=== PATIENT | female | born 1970 | race Hispanic/Latino ===

== ENCOUNTER 2017-08-15 10:48 | Emergency (ER) | payer MEDICARE ==
--- NOTE | 2017-08-15 12:02 | Emergency Department Report ---
Chief Complaint: Back Pain/Injury Stated Complaint: LOWER BACK PAIN Time Seen by Provider: 08/15/17 12:00 - HPI History of Present Illness: Patient here report that she is having pain to her right back and right flank area since last night. She says she is having nausea without any vomiting. Patient with blood pressure of 205/122 which was retaken and and was a 208/125. She denies any headache or chest pain, shortness of breath. Patient says she usually takes amlodipine, HCTZ and clonidine and she took this morning but she was not able to keep it down. Pain is 8 out of 10 to her back and flank and aching. Patient says she has a history of kidney stones. She denies any urinary burning but reports frequency. She has a history of hypertension and diabetes and also history of multiple sclerosis. Patient has a history of gallbladder removed, hysterectomy, tubal ligation and uterine ablation. She denies any abdominal pain. - ROS Review of Systems: All systems are negative unless stated in HPI above - Exam Vital Signs: Vital Signs 08/15/17 11:10 Temperature 98 F Pulse Rate 97 H Respiratory 20 Rate Blood Pressure 205/122 O2 Sat by Pulse 97 Oximetry Blood pressure rechecked 208/125. Patient given clonidine 0.2 mg and will recheck blood pressure Physical Exam: Gen.: This is a 46-year-old female well-nourished well-developed. She is nontoxic in appearance but facial grimace from pain CV: S1, S2. Regular rate rhythm Mini-neurological: GCS at 15, speech is clear and fluid. Alert and oriented 3 and no facial droop and Abdomen: Nontender to palpation in all quadrants, normal bowel sounds. No acute abdomen. Positive right CVA tenderness MSE screening note: Focused history and physical exam performed. Due to findings the following was ordered: Patient given clonidine 0.2 mg, Toradol 30 mg and Zofran 4 mg ODT in triage area. Plan to recheck blood pressure ED Medical Decision Making - Medical Decision Making MDM: Patient screened by provider in triage area. Appropriate protocol initiated and patient to be seen in main ED by ED Disposition for MSE Condition: Stable
[2017-08-15] MEDS ORDERED: TORADOL ONE (12:04)
[2017-08-15] MEDS ORDERED: CATAPRES ONE (12:04)
[2017-08-15] MEDS ORDERED: ZOFRAN ODT ONE (12:04)
[2017-08-15] MEDS ORDERED: TORADOL IM ONE (12:23)
[2017-08-15] MEDS ORDERED: ZOFRAN ODT PO ONE (12:23)
[2017-08-15] MEDS ORDERED: CATAPRES PO ONE (12:23)
[2017-08-15 12:54] LABS: Basophils % (Auto) 0.9 % (0.0-1.8); Eosinophils % (Auto) 1.7 % (0.0-4.3); Hematocrit 43.3 % (30.3-42.9); Hemoglobin 14.5 gm/dl (10.1-14.3); Mean Corpuscular HGB Conc 33 % (30-34); Mean Corpuscular Hemoglobin 29 pg (28-32); Mean Corpuscular Volume 86 fl (79-97); Platelet Count 154 K/mm3 (140-440); Red Blood Count 5.01 M/mm3 (3.65-5.03); Red Cell Distribution Width 13.5 % (13.2-15.2)
[2017-08-15 13:11] LABS: Alanine Aminotransferase 20 units/L (7-56); Albumin/Globulin Ratio 1.4 %; Alkaline Phosphatase 87 units/L (35-129); Anion Gap 21 mmol/L; BUN/Creatinine Ratio 16; Blood Urea Nitrogen 13 mg/dL (7-17); Calcium 8.8 mg/dL (8.4-10.2); Carbon Dioxide 26 mmol/L (22-30); Chloride 91.9 mmol/L (98-107); Potassium 3.7 mmol/L (3.6-5.0); Sodium 135 mmol/L (137-145); Total Protein 6.9 g/dL (6.3-8.2)
[2017-08-15 13:17] LABS: Glucose 603 mg/dL (65-100)
--- NOTE | 2017-08-15 13:17 | Cat Scan Report ---
CT ABDOMEN AND PELVIS WITHOUT CONTRAST: 08/15/17 10:48:00 CLINICAL:Flank pain with CVA tenderness. TECHNIQUE: Volumetric acquisition and 1.25 millimeter scan reconstructions from the lung bases through the pelvis. The study was performed without oral contrast. FINDINGS: Abdomen:A 2 mm nonobstructive calculus in the midportion of the right kidney and a 1 mm nonobstructive calculus in the upper pole the left kidney. The renal collecting systems and ureters are nondilated. No renal mass or cyst. The adrenal glands are normal. Normal liver and bile ducts status post cholecystectomy. Normal stomach, duodenum, pancreas and spleen. Normal small bowel. Normal ascending, transverse and descending colon. The appendix is normal. No ascites and no pneumoperitoneum. Pelvis: Absence of the uterus and normal vaginal cuff. Normal urinary bladder and rectum.Ovaries are not identified. No adnexal mass or free fluid. Normal sigmoid colon. IMPRESSION: 1. Tiny bilateral nonobstructive renal calculi. 2. No signs of pyelonephritis or pyonephrosis. 3. No obstructive calculus. 4. Status post cholecystectomy and status post hysterectomy with bilateral salpingo-oophorectomy.
[2017-08-15 13:57] LABS: Bacteria,Urine 1+ /HPF (Negative); Bilirubin,Urine NEG (Negative); Blood,Urine LG (Negative); Ketones,Urine NEG (Negative); Leukocyte Esterase,Urine MOD (Negative); Mucus,Urine FEW /HPF; Nitrite,Urine NEG (Negative); Urobilinogen,Urine < 2.0 mg/dL (<2.0)
[2017-08-15] MEDS ORDERED: NACL 0.9% 1000 ML 1,000 ML IV ONE ×2 (16:38→18:19)
[2017-08-15] MEDS ORDERED: ROCEPHIN/NS 1 GM/50 ML 1 GM/50 ML BAG IV ONE (16:39)
[2017-08-15] MEDS ORDERED: ZOFRAN IV ONE ×2 (16:44→18:56)
[2017-08-15] MEDS ORDERED: DILAUDID IV ONE ×2 (16:44→18:19)
[2017-08-15] MEDS ORDERED: cefTRIAXone 1 GM in NACL 0.9% 20 ML IV ONE (17:30)
--- NOTE | 2017-08-15 18:27 | Emergency Department Report ---
ED Abdominal Pain HPI - General Chief Complaint: Back Pain/Injury Stated Complaint: LOWER BACK PAIN Time Seen by Provider: 08/15/17 12:00 Source: patient Mode of arrival: Ambulatory Limitations: No Limitations - History of Present Illness Initial Comments: 46 year old female with a past medical history diabetes, hypertension, multiple sclerosis, kidney stone and previous cholecystectomy, hysterectom, and tubal ligation because also complains of right flank pain since yesterday. Pain acutely worsened at 2 AM. Pain is constant, stabbing, and fluctuates in intensity. Currently radiated 8/10 in intensity and worse with palpation and movement positive associated nausea, vomiting, or by mouth intolerance. Mild dysuria and mild hematuria reported. Symptoms are similar to previous kidney stones in the past. Kidney stones never required lithotripsy or surgical intervention. Patient denies fever. Patient unable to tolerate her BP medications today and did not take her insulin and presents with elevated blood pressure and hyperglycemia. Severity scale (0 -10): 10 - Related Data Previous Rx's Medication Instructions Recorded Last Taken Type HYDROcodone/APAP 7.5-325 [[place] 1 each PO Q6HR PRN #20 tablet 08/15/17 Unknown Rx 7.5/325] Nitrofurantoin Monohyd/M-Cryst 100 mg PO BID #20 capsule 08/15/17 Unknown Rx [Macrobid 100 mg Capsule] Ondansetron [Zofran Odt] 4 mg PO Q8HR #20 tab.rapdis 08/15/17 Unknown Rx Allergies Allergy/AdvReac Type Severity Reaction Status Date / Time lisinopril Allergy Angioedema Verified 08/15/17 11:14 metoclopramide [From Reglan] Allergy Unknown Verified 08/15/17 11:14 Sulfa (Sulfonamide Allergy Unknown Verified 08/15/17 11:14 Antibiotics) sumatriptan [From Imitrex] Allergy Unknown Verified 08/15/17 11:14 lorazepam [From Ativan] AdvReac Unknown Verified 08/15/17 11:14 ED Review of Systems ROS: Stated complaint: LOWER BACK PAIN Other details as noted in HPI Comment: All other systems reviewed and negative Other: Constitutional: No fevers chills Eyes: No eye pain visual changes ENT: No ear pain or throat pain Neck: Denies pain Respiratory: Denies cough wheezing shortness of breath Cardiovascular: Denies chest pain, palpitations, syncope GI: Denies diarrhea,constipation, melena hematochezia : As per HPI Musculoskeletal: Right flank pain Skin: Denies rash, lesions, erythema Neurologic: Denies headache, numbness, weakness Psychiatric: Denies suicidal ideation, hallucinations ED Past Medical Hx - Past Medical History Hx Hypertension: Yes Hx Diabetes: Yes Additional medical history: MS - Surgical History Hx Cholecystectomy: Yes Additional Surgical History: hysterectomy,tubal,ablasion,kidney stones - Social History Smoking Status: Never Smoker Substance Use Type: None - Medications Home Medications: Home Medications Medication Instructions Recorded Confirmed Last Taken Type HYDROcodone/APAP 7.5-325 [[place] 1 each PO Q6HR PRN #20 tablet 08/15/17 Unknown Rx 7.5/325] Nitrofurantoin Monohyd/M-Cryst 100 mg PO BID #20 capsule 08/15/17 Unknown Rx [Macrobid 100 mg Capsule] Ondansetron [Zofran Odt] 4 mg PO Q8HR #20 tab.rapdis 08/15/17 Unknown Rx ED Physical Exam - General Limitations: No Limitations - Other Other exam information: General: No limitations, moderate distress secondary to pain Head exam: Atraumatic, normocephalic Eyes exam: Normal appearance, pupils equal reactive to light, extraocular movements intact ENT: Moist mucous membrane, normal oropharynx Neck exam: Normal inspection, full range of motion, no meningismus nontender Respiratory exam: Clear to auscultation bilateral, no wheezes, rales, crackles Cardiovascular: Normal rate and rhythm Abdomen: Soft, nondistended, right-sided abdominal tenderness, with normal bowel sounds, no rebound, or guarding Extremity: Full range of motion normal inspection no deformity Back: Normal Inspection, full range of motion, right CVA tenderness Neurologic: Alert, oriented x3, cranial nerves intact, no motor or sensory deficit Psychiatric: normal affect, normal mood Skin: Warm, dry, intact ED Course Vital Signs 08/15/17 08/15/17 08/15/17 11:10 12:24 13:50 Temperature 98 F Pulse Rate 97 H 97 H 81 Respiratory 20 18 18 Rate Blood Pressure 205/122 205/122 Blood Pressure 180/105 [Right] O2 Sat by Pulse 97 99 Oximetry 08/15/17 08/15/17 16:26 19:06 Temperature 97.4 F L Pulse Rate 69 69 Respiratory 18 16 Rate Blood Pressure Blood Pressure 141/103 181/108 [Right] O2 Sat by Pulse 97 98 Oximetry - Reevaluation(s) Reevaluation #1: 08/15/17 18:26 Patient received Toradol, Zofran, and clonidine 0.2 mg prior to my evaluation. Patient states that her pain was returning and therefore additional Dilaudid provided. Patient continues to have pain despite additional Dilaudid dose and therefore more medication order. Insulin provided for hyperglycemia as well as IV fluids. BP is improving after clonidine. ED Medical Decision Making - Lab Data Result diagrams: 08/15/17 12:27 08/15/17 12:27 Lab Results 08/15/17 08/15/17 08/15/17 Range/Units 12:27 12: 12:42 WBC 6.0 (4.5-11.0) K/mm3 RBC 5.01 (3.65-5.03) M/mm3 Hgb 14.5 H (10.1-14.3) gm/dl Hct 43.3 H (30.3-42.9) % MCV 86 (79-97) fl MCH 29 (28-32) pg MCHC 33 (30-34) % RDW 13.5 (13.2-15.2) % Plt Count 154 (140-440) K/mm3 Lymph % (Auto) 29.4 (13.4-35.0) % [place] % (Auto) 5.8 (0.0-7.3) % Eos % (Auto) 1.7 (0.0-4.3) % Baso % (Auto) 0.9 (0.0-1.8) % Lymph # 1.8 (1.2-5.4) K/mm3 [place] # 0.4 (0.0-0.8) K/mm3 Eos # 0.1 (0.0-0.4) K/mm3 Baso # 0.1 (0.0-0.1) K/mm3 Seg Neutrophils % 62.2 (40.0-70.0) % Seg Neutrophils # 3.7 (1.8-7.7) K/mm3 D-Dimer (0-234) ng/mlDDU Sodium 135 L (137-145) mmol/L Potassium 3.7 (3.6-5.0) mmol/L Chloride 91.9 L (98-107) mmol/L Carbon Dioxide 26 (22-30) mmol/L Anion Gap 21 mmol/L BUN 13 (7-17) mg/dL Creatinine 0.8 (0.7-1.2) mg/dL Estimated GFR > 60 ml/min BUN/Creatinine Ratio 16 % Glucose 603 H* (65-100) mg/dL POC Glucose (70-105) Calcium 8.8 (8.4-10.2) mg/dL Total Bilirubin 0.20 (0.1-1.2) mg/dL AST 11 (5-40) units/L ALT 20 (7-56) units/L Alkaline Phosphatase 87 (35-129) units/L Total Protein 6.9 (6.3-8.2) g/dL Albumin 4.0 (3.9-5) g/dL Albumin/Globulin Ratio 1.4 % Urine Color Yellow (Yellow) Urine Turbidity Clear (Clear) Urine pH 5.0 (5.0-7.0) Ur Specific [place] 1.028 (1.003-1.030) Urine Protein 30 mg/dl (Negative) mg/dL Urine Glucose (UA) >=500 (Negative) mg/dL Urine Ketones Neg (Negative) mg/dL Urine Blood Lg (Negative) Urine Nitrite Neg (Negative) Urine Bilirubin Neg (Negative) Urine Urobilinogen < 2.0 (<2.0) mg/dL Ur Leukocyte Esterase Mod (Negative) Urine WBC (Auto) 54.0 H (0.0-6.0) /HPF Urine RBC (Auto) 9.0 (0.0-6.0) /HPF U Epithel Cells (Auto) 14.0 H (0-13.0) /HPF Urine Bacteria (Auto) 1+ (Negative) /HPF Urine Mucus Few /HPF 08/15/17 08/15/17 08/15/17 Range/Units 17:28 17:53 18:21 WBC (4.5-11.0) K/mm3 RBC (3.65-5.03) M/mm3 Hgb (10.1-14.3) gm/dl Hct (30.3-42.9) % MCV (79-97) fl MCH (28-32) pg MCHC (30-34) % RDW (13.2-15.2) % Plt Count (140-440) K/mm3 Lymph % (Auto) (13.4-35.0) % [place] % (Auto) (0.0-7.3) % Eos % (Auto) (0.0-4.3) % Baso % (Auto) (0.0-1.8) % Lymph # (1.2-5.4) K/mm3 [place] # (0.0-0.8) K/mm3 Eos # (0.0-0.4) K/mm3 Baso # (0.0-0.1) K/mm3 Seg Neutrophils % (40.0-70.0) % Seg Neutrophils # (1.8-7.7) K/mm3 D-Dimer 217.45 (0-234) ng/mlDDU Sodium (137-145) mmol/L Potassium (3.6-5.0) mmol/L Chloride (98-107) mmol/L Carbon Dioxide (22-30) mmol/L Anion Gap mmol/L BUN (7-17) mg/dL Creatinine (0.7-1.2) mg/dL Estimated GFR ml/min BUN/Creatinine Ratio % Glucose (65-100) mg/dL POC Glucose 454 H 265 H (70-105) Calcium (8.4-10.2) mg/dL Total Bilirubin (0.1-1.2) mg/dL AST (5-40) units/L ALT (7-56) units/L Alkaline Phosphatase (35-129) units/L Total Protein (6.3-8.2) g/dL Albumin (3.9-5) g/dL Albumin/Globulin Ratio % Urine Color (Yellow) Urine Turbidity (Clear) Urine pH (5.0-7.0) Ur Specific [place] (1.003-1.030) Urine Protein (Negative) mg/dL Urine Glucose (UA) (Negative) mg/dL Urine Ketones (Negative) mg/dL Urine Blood (Negative) Urine Nitrite (Negative) Urine Bilirubin (Negative) Urine Urobilinogen (<2.0) mg/dL Ur Leukocyte Esterase (Negative) Urine WBC (Auto) (0.0-6.0) /HPF Urine RBC (Auto) (0.0-6.0) /HPF U Epithel Cells (Auto) (0-13.0) /HPF Urine Bacteria (Auto) (Negative) /HPF Urine Mucus /HPF - Radiology Data Radiology results: report reviewed CT abdomen and pelvis without contrast: Tiny bilateral nonobstructive renal calculi. No signs of pyelonephritis or pyelonephrosis. No obstructive calculus. Status post cholecystectomy, hysterectomy with bilateral salpingo- oophorectomy - Medical Decision Making Patient's symptoms have improved after multiple doses of Dilaudid, and Zofran. Patient received IV Rocephin. Will be discharged home on medications for UTI and pain medication. D-dimer is negative therefore aortic dissection/PE unlikely Glucose improved with insulin and BP improved after clonidine - Differential Diagnosis renal colic, UTI, dissection, appendicitis, hypertensive emergency, Dka Critical Care Time: No Critical care attestation.: If time is entered above; I have spent that time in minutes in the direct care of this critically ill patient, excluding procedure time. ED Disposition Clinical Impression: UTI (urinary tract infection), Right flank pain, HTN (hypertension), Diabetes mellitus with hyperglycemia, Vomiting, Kidney stone Disposition: TO HOME OR SELFCARE Is pt being admited?: No Does the pt Need Aspirin: No Condition: Stable Instructions: Hypertension (ED), Diabetes Mellitus Type 2 in Adults (ED), Urinary Tract Infection in Women (ED), Kidney Stones (ED) Additional Instructions: Take the medication as prescribed. Follow-up with your primary care doctor. Return if symptoms worsen. Prescriptions: HYDROcodone/APAP 7.5-325 [[place] 7.5/325] 1 each PO Q6HR PRN #20 tablet PRN Reason: Pain Nitrofurantoin Monohyd/M-Cryst [Macrobid 100 mg Capsule] 100 mg PO BID #20 capsule Ondansetron [Zofran Odt] 4 mg PO Q8HR #20 tab.rapdis Referrals: RHEA WELLINGTON [Other] - 3-5 Days Time of Disposition: 20:32
[2017-08-15 21:01] VITALS: BP 172/99
== END 2017-08-15 20:59 | disposition home or self-care (01) ==
LOC: ED 10:48
DX: N39.0 Urinary tract infection, site not specified (principal); N23 Unspecified renal colic; E11.65 Type 2 diabetes mellitus with hyperglycemia; I10 Essential (primary) hypertension; G35 Multiple sclerosis; Z98.51 Tubal ligation status; Z90.710 Acquired absence of both cervix and uterus; Z88.8 Allergy status to other drugs, medicaments and biological substances; Z88.2 Allergy status to sulfonamides
CPT/HCPCS: 36415; 74176; 80053; 81001; 82962; 85025; 85379; 87086; 96365; 96372; 96375; 96376; 99284; J0696; J1170; J1885; J2405; J7030; J1815; Q0162